=== PATIENT | female | born 1975 | race Two or more races ===

== ENCOUNTER 2022-03-24 14:59 | Emergency (ER) | payer BC, OTHER ==
[~2022-03-24] VITALS: Ht 154.9 cm; Wt 62.2 kg
[2022-03-24 15:06] VITALS: BP 132/50
[2022-03-24 15:23] LABS: Basophils # (auto) 0 10 ^3/uL (0-0.2); Basophils % (auto) 0.4 % (0.0-2.0); Eosinophils # (auto) 0.1 10 ^3/uL (0-0.8); Eosinophils % (auto) 4.2 % (0.0-7.0); Hematocrit 24.2 % (36.0-46.0); Hemoglobin 7.1 g/dL (12.2-16.2); Lymphocytes % (auto) 28.5 % (10.0-50.0); Mean Corpuscular Hemoglobin 19.6 pg (28.0-32.0); Mean Corpuscular Hgb Conc. 29.1 g/dL (32.0-36.0); Mean Corpuscular Volume 67.5 fL (80.0-100.0); Monocytes # (auto) 0.3 10 ^3/uL (0-1.3); Monocytes % (auto) 8.1 % (0.0-12.0); Neutrophils % (auto) 58.8 % (37.0-80.0); Nucleated Red Blood Cells % 0.1 %; Red Blood Cells 3.59 10^6/uL (4.0-5.20); White Blood Cell 3.5 10^3/uL (4.4-10.8)
[2022-03-24 15:39] LABS: INR 0.91 (0.9-1.15); Partial Thromboplastin Time 23.4 sec (24.6-33.4)
[2022-03-24] MEDS ORDERED: FER325T PO (15:50)
[2022-03-24 15:54] LABS: Albumin 3.8 g/dL (3.4-5.0); BUN/Creatinine Ratio 34.5; Calcium 8.2 mg/dL (8.5-10.1)
[2022-03-24 15:56] LABS: Bilirubin, Total 0.2 mg/dL (0.2-1.0); Total Protein 7.2 g/dL (6.4-8.2)
== END 2022-03-24 16:57 | disposition home or self-care (01) ==
LOC: ER 14:59
DX: D64.9 Anemia, unspecified (principal)
CPT/HCPCS: 36415; 80053; 84484; 85025; 85610; 85730; 86850; 86900; 86901